=== PATIENT | male | born 1975 | race Caucasian/White ===

== ENCOUNTER 2018-07-10 22:06 | Emergency (ER) | payer MEDICAID ==
--- NOTE | 2018-07-10 22:20 | Emergency Department Record ---
History of Present Illness - General Chief Complaint: General Stated Complaint: LUMP ON NECK Time Seen by Provider: 07/10/18 22:15 Source: Patient Mode of Arrival: Ambulatory Limitations: No limitations - History of Present Illness Initial comments: 43 yo male presents to ED for evaluation of a "lump" to the left paracervical region of the posterior left neck. Patient is unsure how long his symptoms have been present, reports recent URI type symptoms. Patient reports that the area is painful to the tough. Patient denies health problems at his baseline. Location: Left, Neck Radiation: Non-Radiating Quality: Constant Consistency: Constant Improves with: None Worsens with: Other (Palpation) Treatments Prior to Arrival: None - Fatuma Coma Scale Eye Response: (4) Open spontaneously Motor Response: (6) Obeys commands Verbal Response: (5) Oriented Fatuma Total: 15 - Related Data Home Medications Medication Instructions Recorded Confirmed Last Taken No Home Med [NO HOME MEDS] 07/10/18 07/10/18 Unknown Allergies Allergy/AdvReac Type Severity Reaction Status Date / Time No Known Drug Allergies Allergy Verified 07/10/18 22:11 Travel Screening - Travel/Exposure Within Last 30 Days Have you traveled within the last 30 days?: No - Travel Symptoms Symptom Screening: None Review of Systems Constitutional: Denies: Chills, Fever, Malaise, Night sweats Eyes: Denies: Eye discharge, Eye pain ENT: Reports: Congestion. Denies: Ear pain, Epistaxis Respiratory: Denies: Cough, Dyspnea Cardiovascular: Denies: Chest pain, Dyspnea on exertion Endocrine: Denies: Fatigue, Heat or cold intolerance Gastrointestinal: Denies: Abdominal pain, Nausea, Vomiting Genitourinary: Denies: Incontinence, Retention Musculoskeletal: Denies: Arthralgia, Back pain Skin: Denies: Bruising, Change in color Neurological: Denies: Abnormal gait, Confusion, Headache, Seizure Psychiatric: Denies: Anxiety Hematological/Lymphatic: Denies: Anemia, Blood Clots Physical Exam - General General Appearance: Alert, Oriented x3, Cooperative, No acute distress, Other ( Cachetic appearing on examination) Limitations: No limitations - Head Head exam: Atraumatic, Normocephalic, Normal inspection Head exam detail: negative: Abrasion, Contusion, Jenkins's sign, General tenderness, Hematoma, Laceration - Eye Eye exam: Normal appearance. negative: Conjunctival injection, Periorbital swelling, Periorbital tenderness, Scleral icterus - ENT Ear exam: negative: Auricular hematoma, Auricular trauma Nasal Exam: negative: Active bleeding, Discharge, Dried blood, Foreign body Mouth exam: negative: Drooling, Laceration, Muffled voice, Tongue elevation - Neck Neck exam: Tenderness, Other (Moderate TTP to the left para-cervical neck with deep palpation, no abscess present, no obvious source of infection is present. ). negative: Meningismus - Respiratory Respiratory exam: Normal lung sounds bilaterally. negative: Rales, Respiratory distress, Rhonchi, Stridor - Cardiovascular Cardiovascular Exam: Regular rate, Normal rhythm, Normal heart sounds - GI/Abdominal GI/Abdominal exam: Soft. negative: Rebound, Rigid, Tenderness - Rectal Rectal exam: Deferred - exam: Deferred - Extremities Extremities exam: Normal inspection. negative: Calf tenderness, Pedal edema, Tenderness - Back Back exam: Denies: CVA tenderness (R), CVA tenderness (L) - Neurological Neurological exam: Alert, Normal gait, Oriented X3 - Psychiatric Psychiatric exam: Normal affect, Normal mood - Skin Skin exam: Normal color. negative: Abrasion Type of lesion: negative: abrasion Course Vital Signs 07/10/18 07/10/18 22:11 22:12 Temperature 97.9 F 97.9 F Pulse Rate [ 65 Pulse Ox Probe] Respiratory 16 Rate Blood Pressure 116/83 [Left Arm] Pulse Ox 96 - Reevaluation(s) Reevaluation #1: 07/10/18 22:18 Examination appears c/w deep lymph node to the left para-cervical region. No evidence for infection on examination. Recommended re-evaluation in 1 week with his PCP. Disposition Disposition: Discharge Clinical Impression: Neck pain Disposition: Home, Self-Care Condition: (2) Stable Instructions: Neck Pain (ED) Additional Instructions: Return to ED if your symptoms worsen or if you have any concerns. Follow-up with your family doctor in 1 week for re-evaluation of your neck pain lesion/pain symptoms. Forms: Patient Portal Access Time of Disposition: 22:20 Quality - Quality Measures Quality Measures: N/A - Blood Pressure Screening Does Patient Have Any of the Following: No Blood Pressure Classification: Pre-Hypertensive BP Reading Systolic Measurement: 116 Diastolic Measurement: 83 Screening for High Blood Pressure: < Pre-Hypertensive BP, F/U Documented > [ [id number]] Pre-Hypertensive Follow-up Interventions: Referral to alternative/primary care provider.
== END 2018-07-10 22:23 | disposition home or self-care (01) ==
LOC: ER 22:06
DX: R59.0 Localized enlarged lymph nodes (principal); M54.2 Cervicalgia
CPT/HCPCS: 99282